=== PATIENT | female | born 1995 | race Caucasian/White ===

== ENCOUNTER 2016-05-29 21:37 | Emergency (ER) | payer OTHER ==
[2016-05-29 22:13] VITALS: BP 116/74; PULSE 90; RESP 20; TEMP 98.7
--- NOTE | 2016-05-29 23:06 | ED ---
General Adult HPI - General Chief complaint: ENT Stated complaint: Sore Throat Time Seen by Provider: 05/29/16 22:56 Source: patient, RN notes reviewed Mode of arrival: ambulatory Limitations: no limitations - History of Present Illness Initial comments: Patient 20-year-old female who presents emergency room today with a chief complaint of increased sore throat. States it hurts when she swallows and does admit to pain to the right ear. Patient denies any other complaints or associated symptoms. Patient denies any recent fever, chills, shortness of breath, chest pain, back pain, abdominal pain, nausea or vomiting, numbness or tingling, dysuria or hematuria, constipation or diarrhea, headaches or visual changes, or any other complaints. - Related Data Previous Rx's Medication Instructions Recorded Amoxicillin 500 mg PO Q8H 10 Days 05/29/16 Ibuprofen [Motrin] 600 mg PO Q6HR PRN #20 day 05/29/16 Allergies Allergy/AdvReac Type Severity Reaction Status Date / Time adhesive tape Allergy Rash/Hives Verified 05/29/16 22:13 latex Allergy Rash/Hives Verified 05/29/16 22:13 nickel Allergy Rash/Hives Verified 05/29/16 22:13 orange juice [[place]] Allergy Swelling Verified 05/29/16 22:13 egg AdvReac Severe Nausea & Verified 05/29/16 22:13 Vomiting Review of Systems ROS Statement: Those systems with pertinent positive or pertinent negative responses have been documented in the HPI. ROS Other: All systems not noted in ROS Statement are negative. Past Medical History Past Medical History: Asthma History of Any Multi-Drug Resistant Organisms: None Reported Past Surgical History: No Surgical Hx Reported Past Psychological History: ADD/ADHD, Depression Smoking Status: Never smoker Past Alcohol Use History: None Reported Past Drug Use History: None Reported General Exam - General Exam Comments Initial Comments: General: The patient is awake and alert, in no distress, and does not appear acutely ill. Eye: Pupils are equal, round and reactive to light, extra-ocular movements are intact. No nystagmus. There is normal conjunctiva bilaterally. No signs of icterus. Ears, nose, mouth and throat: There are moist mucous membranes and no oral lesions. Patient does have increased redness or erythema to the right ear with decreased bony landmarks consistent with otitis media on the right. Left TM clear. Neck: The neck is supple, there is no tenderness or JVD. Cardiovascular: There is a regular rate and rhythm. No murmur, rub or gallop is appreciated. Respiratory: Lungs are clear to auscultation, respirations are non-labored, breath sounds are equal. No wheezes, stridor, rales, or rhonchi. Musculoskeletal: Normal ROM, no tenderness. Strength 5/5. Sensation intact. Pulses equal bilaterally 2+. Neurological: A&O x 3. CN II-XII intact, There are no obvious motor or sensory deficits. Coordination appears grossly intact. Speech is normal. Skin: Skin is warm and dry and no rashes or lesions are noted. Psychiatric: Cooperative, appropriate mood & affect, normal judgment. Limitations: no limitations Course Vital Signs 05/29/16 22:11 Temperature 98.7 F Pulse Rate 90 Respiratory 20 Rate Blood Pressure 116/74 O2 Sat by Pulse 97 Oximetry Medical Decision Making - Medical Decision Making Patient will be started on antibiotics cover for otitis media to the right. Disposition Clinical Impression: Acute otitis media, right Disposition: HOME SELF-CARE Condition: Good Instructions: Otitis Media (ED) Additional Instructions: Please use medication as discussed. Please follow-up with family doctor in the next 2 days of symptoms have not improved. Please return to emergency room if the symptoms increase or worsen or for any other concerns. Prescriptions: Amoxicillin 500 mg PO Q8H 10 Days Ibuprofen [Motrin] 600 mg PO Q6HR PRN #20 day PRN Reason: Pain Time of Disposition: 23:06
[2016-05-29] MEDS ORDERED: AMOXICILLIN 500MG STARTER PACK 3 CAP BTL PO STA (23:09)
== END 2016-05-29 23:30 | disposition home or self-care (01) ==
LOC: EC 21:37
DX: H66.91 Otitis media, unspecified, right ear (principal); Z91.012 Allergy to eggs; Z91.040 Latex allergy status; Z91.018 Allergy to other foods; Z91.048 Other nonmedicinal substance allergy status
CPT/HCPCS: 99282

== ENCOUNTER 2016-06-09 12:39 | Emergency (ER) | payer OTHER ==
[2016-06-09 13:10] VITALS: BP 119/61; PULSE 101; RESP 20; TEMP 98.5
--- NOTE | 2016-06-09 13:22 | ED ---
General Adult HPI - General Chief complaint: Upper Respiratory Infection Stated complaint: COUGH Time Seen by Provider: 06/09/16 13:18 Source: patient, RN notes reviewed Mode of arrival: ambulatory Limitations: no limitations - History of Present Illness Initial comments: A 20-year-old female who presents with cough 3-4 days. Patient states she was recently on antibiotics for an ear infection and finished the antibiotics 2-3 days ago. Patient denies any known fevers but states she has felt warm. Patient denies any shortness of breath or wheezing. Patient states she has a history of asthma but she has not needed her inhaler more often. Patient denies any congestion, ear pain, headache or sore throat. Patient is unsure if she could be . Patient denies any recent chest pain, abdominal pain, nausea/vomiting/diarrhea, back pain, numbness, tingling, hematuria, or visual changes, or any other complaints. - Related Data Allergies Allergy/AdvReac Type Severity Reaction Status Date / Time adhesive tape Allergy Rash/Hives Verified 06/09/16 13:10 latex Allergy Rash/Hives Verified 06/09/16 13:10 nickel Allergy Rash/Hives Verified 06/09/16 13:10 orange juice [[place]] Allergy Swelling Verified 06/09/16 13:10 egg AdvReac Severe Nausea & Verified 06/09/16 13:10 Vomiting Review of Systems ROS Statement: Those systems with pertinent positive or pertinent negative responses have been documented in the HPI. ROS Other: All systems not noted in ROS Statement are negative. Past Medical History Past Medical History: Asthma History of Any Multi-Drug Resistant Organisms: None Reported Past Surgical History: No Surgical Hx Reported Past Psychological History: ADD/ADHD, Depression Smoking Status: Never smoker Past Alcohol Use History: None Reported Past Drug Use History: None Reported General Exam - General Exam Comments Initial Comments: General: The patient is awake and alert, in no distress, and does not appear acutely ill. Eye: Pupils are equal, round and reactive to light, extra-ocular movements are intact. No nystagmus. There is normal conjunctiva bilaterally. No signs of icterus. Ears: TMs pink and pearly with intact cone of light bilaterally. Normal external ear canals Nose: Nasal turbinates pink and moist Mouth and throat: There are moist mucous membranes and no oral lesions. Neck: The neck is supple, there is no tenderness or JVD. Cardiovascular: There is a regular rate and rhythm. No murmur, rub or gallop is appreciated. Respiratory: Lungs are clear to auscultation, respirations are non-labored, breath sounds are equal. No wheezes, stridor, rales, or rhonchi. Musculoskeletal: Normal ROM, no tenderness. Strength 5/5. Sensation intact. Radial pulses equal bilaterally 2+. Neurological: A&O x 3. CN II-XII intact, There are no obvious motor or sensory deficits. Coordination appears grossly intact. Speech is normal. Skin: Skin is warm and dry and no rashes or lesions are noted. Psychiatric: Cooperative, appropriate mood & affect, normal judgment. Limitations: no limitations Course Vital Signs 06/09/16 13:07 Temperature 98.5 F Pulse Rate 101 H Respiratory 20 Rate Blood Pressure 119/61 O2 Sat by Pulse 100 Oximetry Medical Decision Making - Medical Decision Making This is a 20-year-old female who presents with cough 3-4 days. On physical exam lungs are clear to auscultation bilaterally. Patient is afebrile the EC. Patient is 100% on room air and respiratory rate is 20. A urine hCG was done and was negative. A chest x-ray was done and reviewed showing: No acute cardiopulmonary process. No significant change from prior. Reported by Dr. Servin. I discussed upper respiratory infection with patient. I discussed over-the- counter decongestants, Flonase, Claritin or nasal rinses to help with symptom relief. I discussed Tylenol and Motrin for any pain or fever symptoms. I discussed return parameters.Discussed that patient should follow up with PCP in one to 2 days or return to the EC for any worsening symptoms or for any further concerns. Patient was receptive to this plan and patient will be discharged home. - Lab Data Lab Results 06/09/16 Range/Units 13:44 Urine HCG, Qual Not Detected (Not Detectd) Disposition Clinical Impression: Upper respiratory infection Disposition: HOME SELF-CARE Condition: Good Instructions: Upper Respiratory Infection (ED) Additional Instructions: Please use [id number] decongestants, nasal sprays, nasal rinses are clear to help with symptom relief. Please use Tylenol or Motrin for any pain or fever symptoms.Please use medication as discussed. Please follow-up with family doctor in the next 2 days of symptoms have not improved. Please return to emergency room if the symptoms increase or worsen or for any other concerns. Referrals: None,Stated [Primary Care Provider] - 1-2 days Daphne Holt MD [STAFF PHYSICIAN] - 1-2 days Time of Disposition: 14:56
--- NOTE | 2016-06-09 14:42 | XR ---
EXAMINATION TYPE: XR chest 2V DATE OF EXAM: 06/09/2016 2:31 PM CLINICAL HISTORY: Cough and rib pain for 3 days. TECHNIQUE: Frontal and lateral views of the chest are obtained. COMPARISON: Chest x-ray February 06, 2016. FINDINGS: There is no focal air space opacity, pleural effusion, or pneumothorax seen. The cardiac silhouette size is within normal limits. The osseous structures are intact. IMPRESSION: No acute cardiopulmonary process. No significant change from prior.
== END 2016-06-09 15:02 | disposition home or self-care (01) ==
LOC: EC 12:39
DX: J06.9 Acute upper respiratory infection, unspecified (principal); Z91.040 Latex allergy status; Z91.012 Allergy to eggs; Z91.018 Allergy to other foods; Z91.048 Other nonmedicinal substance allergy status
CPT/HCPCS: 71020; 81025; 99283

== ENCOUNTER 2016-07-07 00:48 | Emergency (ER) | payer OTHER ==
[2016-07-07 00:57] VITALS: BP 126/73; PULSE 80; RESP 18; TEMP 99.4
--- NOTE | 2016-07-07 01:49 | ED ---
Female Urogenital HPI - General Chief complaint: Vaginal Bleeding Stated complaint: Female / 3 months Preg Time Seen by Provider: 07/07/16 01:01 Source: patient, EMS, RN notes reviewed, old records reviewed Mode of arrival: EMS Limitations: no limitations - History of Present Illness Initial comments: Patient is a 20 year old female with chief complaint of vaginal bleeding for one day, and she states that she is approximately 3 months . 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 Patient arrived to emergency department via EMS. Patient is withdrawn and states that she did not want to come here. She reports that her boyfriend made her come because she said she was light headed. Patient states that she has not had any treatment for this , she does not have an OBGYN. - Related Data Home Medications Medication Instructions Recorded Confirmed Unable To Assess [Unable to Assess] 07/07/16 07/07/16 Allergies Allergy/AdvReac Type Severity Reaction Status Date / Time adhesive tape Allergy Rash/Hives Verified 07/07/16 00:53 latex Allergy Rash/Hives Verified 07/07/16 00:53 nickel Allergy Rash/Hives Verified 07/07/16 00:53 orange juice [[place]] Allergy Swelling Verified 07/07/16 00:53 egg AdvReac Severe Nausea & Verified 07/07/16 00:53 Vomiting Review of Systems ROS Statement: Those systems with pertinent positive or pertinent negative responses have been documented in the HPI. ROS Other: All systems not noted in ROS Statement are negative. Past Medical History Past Medical History: Asthma History of Any Multi-Drug Resistant Organisms: None Reported Past Surgical History: No Surgical Hx Reported Past Psychological History: ADD/ADHD, Depression Smoking Status: Never smoker Past Alcohol Use History: None Reported Past Drug Use History: None Reported General Exam - General Exam Comments Initial Comments: Patient is a 20 year old female, no distress. Patient is withdrawn and will not look or talk to me for more than 2 sentances. She is sitting with her arms crossed and watching the TV. Limitations: no limitations General appearance: alert, in no apparent distress Head exam: Present: atraumatic, normocephalic, normal inspection Eye exam: Present: normal appearance, PERRL. Absent: scleral icterus, conjunctival injection, periorbital swelling ENT exam: Present: mucous membranes moist Neck exam: Present: normal inspection. Absent: tenderness, meningismus, lymphadenopathy Respiratory exam: Present: normal lung sounds bilaterally. Absent: respiratory distress, wheezes, rales, rhonchi, stridor Cardiovascular Exam: Present: regular rate, normal heart sounds. Absent: systolic murmur, diastolic murmur, rubs, gallop, clicks GI/Abdominal exam: Absent: distended, tenderness, guarding, rebound, rigid Extremities exam: Present: normal inspection, full ROM. Absent: tenderness, pedal edema, joint swelling, calf tenderness Neurological exam: Present: alert, oriented X3 Psychiatric exam: Present: normal affect. Absent: normal mood (Patient is cross , and arguing with boyfriend about being here. States she feels fine and wants to go home. ) Skin exam: Present: warm, dry, intact, normal color, other (Patient has port wine bailey on right face. ). Absent: rash Course Vital Signs 07/07/16 00:53 Temperature 99.4 F Pulse Rate 80 Respiratory 18 Rate Blood Pressure 126/73 O2 Sat by Pulse 100 Oximetry Medical Decision Making - Medical Decision Making Patient is a 20 year old female with chief complaint of vaginal bleeding for one day, and she states that she is approximately 3 months . 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 Patient arrived to emergency department via EMS. Patient is withdrawn and states that she did not want to come here. She reports that her boyfriend made her come because she said she was light headed. Patient states that she has not had any treatment for this , she does not have an OBGYN. When I discussed the treatment plan of taking blood work and preforming speculum exam patient states that she wants to go home and wants to refuse treatment. Patient was very withdrawn and wanted her boyfriend to speak for why she was there. Patient boyfriend and patient do appear to be upset with each other. At this time, I asked the boyfriend to leave the room. With patient alone, I attempted to ask the patient why she does not want treatmetn or if there are any fear of abuse or if she does not feel safe. Discussed that I wanted to help the patient and if she is having a miscarriage we need to know her lab work including hcg and abo rh. Patient continued to refuse to want to open up, and only stated she wanted to leave. Discussed she would need to leave AMA, and patient agrees to. Discussed that she can return if she has any concerned. Disposition Clinical Impression: Vaginal bleeding, Disposition: Left Against Medical Advice Condition: Stable Referrals: None,Stated [Primary Care Provider] - 1-2 days Time of Disposition: 01:48
== END 2016-07-07 01:56 | disposition left against medical advice (07) ==
LOC: EC 00:48
DX: O20.9 Hemorrhage in early pregnancy, unspecified (principal); Z3A.12 12 weeks gestation of pregnancy; Z91.040 Latex allergy status; Z91.048 Other nonmedicinal substance allergy status; Z91.018 Allergy to other foods; Z91.012 Allergy to eggs; Z88.8 Allergy status to other drugs, medicaments and biological substances
CPT/HCPCS: 99283

== ENCOUNTER 2016-07-17 20:42 | Emergency (ER) | payer OTHER ==
[2016-07-17 21:31] VITALS: TEMP 101
[2016-07-17] MEDS ORDERED: ONDANSETRON 4 MG/2 ML VIAL IVP STA (22:54)
[2016-07-17] MEDS ORDERED: ACETAMINOPHEN TAB 500 MG TAB PO STA (22:54)
[2016-07-17] MEDS ORDERED: SODIUM CHLORIDE 0.9% 1,000 ML IV STA (22:54)
[2016-07-17 23:40] LABS: Basophils # (A) 0.1 k/uL (0-0.2); Basophils % (A) 1 %; CH 28.1; CHCM 32.5; Eosinophils % (A) 1 %; HCT 42.4 % (34.0-46.0); HDW 2.12; HGB 13.7 gm/dL (11.4-16.0); Luc # (Auto) 0.07; Luc % (Auto) 1; Lymphocytes # (A) 1.3 k/uL (1.0-4.8); Lymphocytes % (A) 24 %; MCHC 32.3 g/dL (31.0-37.0); MCV 86.6 fL (80.0-100.0); Mean Platelet Volume 6.8; Monocytes # (A) 0.3 k/uL (0-1.0); Monocytes % (A) 6 %; Neutrophils # (A) 3.7 k/uL (1.3-7.7); Neutrophils % (A) 67 %; RDW 13.7 % (11.5-15.5); WBC 5.5 k/uL (4.0-11.0); WBC (Perox) 5.48
[2016-07-17 23:52] LABS: ALT 23 U/L (9-52); AST 20 U/L (14-36); Alkaline Phosphatase 44 U/L (38-126); Anion Gap 10 mmol/L; Blood Urea Nitrogen 10 mg/dL (7-17); Calcium 9.4 mg/dL (8.4-10.2); Carbon Dioxide 27 mmol/L (22-30); Chloride 100 mmol/L (98-107); Glucose 88 mg/dL (74-99); Magnesium 1.9 mg/dL (1.6-2.3); Non-African American GFR(MDRD) >60 (>60 ml/min/1.73 sqM); Potassium 3.6 mmol/L (3.5-5.1); Sodium 137 mmol/L (137-145); Total Bilirubin 0.8 mg/dL (0.2-1.3)
--- NOTE | 2016-07-18 00:32 | ED ---
Nausea/Vomiting/Diarrhea HPI - General Chief complaint: Nausea/Vomiting/Diarrhea Stated complaint: vomiting Time Seen by Provider: 07/17/16 22:47 Source: patient Mode of arrival: ambulatory Limitations: no limitations - History of Present Illness Initial comments: Patient is a 20-year-old female presenting with nausea and vomiting. Patient states she had vomited 20 episodes of vomiting for the past day. She is suspicious of the meatloaf she ate. Another friend is also sick. Patient denies abdominal pain. Patient has not tried anything for her nausea. Patient describes vomitus food contents and nonbloody. Patient denies fever, chills, chest pain, shortness breath, diarrhea, abdominal pain, dysuria. - Related Data Previous Rx's Medication Instructions Recorded Ondansetron [Zofran] 4 mg PO Q8HR PRN #6 tab 07/18/16 Allergies Allergy/AdvReac Type Severity Reaction Status Date / Time egg Allergy Unknown Swelling Verified 07/17/16 22:59 adhesive tape Allergy Rash/Hives Verified 07/17/16 22:59 latex Allergy Rash/Hives Verified 07/17/16 22:59 nickel Allergy Rash/Hives Verified 07/17/16 22:59 orange juice [[place]] Allergy Swelling Verified 07/17/16 22:59 diphenhydramine AdvReac Anxiety Verified 07/17/16 22:59 [From Benadryl] Review of Systems ROS Statement: Those systems with pertinent positive or pertinent negative responses have been documented in the HPI. Constitutional: No fever and no chills. HENT: No congestion, no rhinorrhea and no sore throat. Eyes: No discharge and no redness. Respiratory: No cough and no shortness of breath. Cardiovascular: No chest pain and no palpitations. Gastrointestinal: +nausea, +vomiting, no abdominal pain and no diarrhea. Genitourinary: No dysuria and no hematuria. Musculoskeletal: No back pain and no arthralgias. Skin: No pallor and no rash. Neurological: No dizziness and No headaches. ROS Other: All systems not noted in ROS Statement are negative. Past Medical History Past Medical History: Asthma History of Any Multi-Drug Resistant Organisms: None Reported Past Surgical History: No Surgical Hx Reported Past Psychological History: ADD/ADHD, Depression Smoking Status: Never smoker Past Alcohol Use History: None Reported Past Drug Use History: None Reported General Exam - General Exam Comments Initial Comments: Constitutional: Patient appears well-developed and well-nourished. No distress. Febrile here. Warm to the touch. Head: Normocephalic and atraumatic. Eyes: Conjunctivae and EOM are normal. Right eye exhibits no discharge. Left eye exhibits no discharge. No scleral icterus. Neck: Normal range of motion. Neck supple. Cardiovascular: Normal rate and regular rhythm. No murmur heard. Pulmonary/Chest: Effort normal and breath sounds normal. No respiratory distress. No wheezes. Abdominal: Soft. No distension. There is no tenderness. There is no rebound and no guarding. Musculoskeletal: Normal range of motion. No edema or tenderness. Neurological: Patient alert and oriented to person, place, and time. Skin: Skin is warm and dry. Not diaphoretic. Nursing notes and vitals reviewed. Limitations: no limitations Course Vital Signs 07/17/16 21:29 Temperature 101.0 F H Pulse Rate 125 H Respiratory 22 Rate Blood Pressure 114/68 O2 Sat by Pulse 99 Oximetry - Reevaluation(s) Reevaluation #1: 07/18/16 00:49 Patient resting comfortably in bed and feeling much better. No further vomiting. Patient afebrile. Medical Decision Making - Medical Decision Making Patient is a 20-year-old female presenting with acute nausea vomiting. Patient suspicious of food she ate. Patient multiple episodes of vomiting. Patient presented febrile and tachycardic without definitive source. CBC, CMP, lipase unremarkable. UA negative for concerns of urinary tract infection or . Patient feeling much better and afebrile. Patient given Zofran for home. Prior to discharge, patient was resting comfortably in bed. Course of stay improved. Denies pain. Discussed physical exam and diagnostic tests with patient. Questions answered and patient is agreeable to discharge with close follow up with Primary Care Physician. Instructed to return to Emergency Department if symptoms worsen. - Lab Data Result diagrams: 07/17/16 23:28 07/17/16 23:28 Lab Results 07/17/16 07/17/16 07/18/16 Range/Units 23:28 23:28 00:25 WBC 5.5 (4.0-11.0) k/uL RBC 4.90 (3.80-5.40) m/uL Hgb 13.7 (11.4-16.0) gm/dL Hct 42.4 (34.0-46.0) % MCV 86.6 (80.0-100.0) fL MCH 28.0 (25.0-35.0) pg MCHC 32.3 (31.0-37.0) g/dL RDW 13.7 (11.5-15.5) % Plt Count 210 (150-450) k/uL Neutrophils % 67 % Lymphocytes % 24 % Monocytes % 6 % Eosinophils % 1 % Basophils % 1 % Neutrophils # 3.7 (1.3-7.7) k/uL Lymphocytes # 1.3 (1.0-4.8) k/uL Monocytes # 0.3 (0-1.0) k/uL Eosinophils # 0.0 (0-0.7) k/uL Basophils # 0.1 (0-0.2) k/uL Sodium 137 (137-145) mmol/L Potassium 3.6 (3.5-5.1) mmol/L Chloride 100 (98-107) mmol/L Carbon Dioxide 27 (22-30) mmol/L Anion Gap 10 mmol/L BUN 10 (7-17) mg/dL Creatinine 0.64 (0.52-1.04) mg/dL Est GFR (MDRD) Af Amer >60 (>60 ml/min/1.73 sqM) Est GFR (MDRD) Non-Af >60 (>60 ml/min/1.73 sqM) Glucose 88 (74-99) mg/dL Calcium 9.4 (8.4-10.2) mg/dL Magnesium 1.9 (1.6-2.3) mg/dL Total Bilirubin 0.8 (0.2-1.3) mg/dL AST 20 (14-36) U/L ALT 23 (9-52) U/L Alkaline Phosphatase 44 (38-126) U/L Total Protein 7.0 (6.3-8.2) g/dL Albumin 4.2 (3.5-5.0) g/dL Lipase 49 (23-300) U/L Urine Color Light Yellow Urine Appearance Clear (Clear) Urine pH 6.5 (5.0-8.0) Ur Specific [place] 1.002 (1.001-1.035) Urine Protein Negative (Negative) Urine Glucose (UA) Negative (Negative) Urine Ketones Negative (Negative) Urine Blood Negative (Negative) Urine Nitrite Negative (Negative) Urine Bilirubin Negative (Negative) Urine Urobilinogen <2.0 (<2.0) mg/dL Ur Leukocyte Esterase Negative (Negative) Urine HCG, Qual (Not Detectd) 07/18/16 Range/Units 00:25 WBC (4.0-11.0) k/uL RBC (3.80-5.40) m/uL Hgb (11.4-16.0) gm/dL Hct (34.0-46.0) % MCV (80.0-100.0) fL MCH (25.0-35.0) pg MCHC (31.0-37.0) g/dL RDW (11.5-15.5) % Plt Count (150-450) k/uL Neutrophils % % Lymphocytes % % Monocytes % % Eosinophils % % Basophils % % Neutrophils # (1.3-7.7) k/uL Lymphocytes # (1.0-4.8) k/uL Monocytes # (0-1.0) k/uL Eosinophils # (0-0.7) k/uL Basophils # (0-0.2) k/uL Sodium (137-145) mmol/L Potassium (3.5-5.1) mmol/L Chloride (98-107) mmol/L Carbon Dioxide (22-30) mmol/L Anion Gap mmol/L BUN (7-17) mg/dL Creatinine (0.52-1.04) mg/dL Est GFR (MDRD) Af Amer (>60 ml/min/1.73 sqM) Est GFR (MDRD) Non-Af (>60 ml/min/1.73 sqM) Glucose (74-99) mg/dL Calcium (8.4-10.2) mg/dL Magnesium (1.6-2.3) mg/dL Total Bilirubin (0.2-1.3) mg/dL AST (14-36) U/L ALT (9-52) U/L Alkaline Phosphatase (38-126) U/L Total Protein (6.3-8.2) g/dL Albumin (3.5-5.0) g/dL Lipase (23-300) U/L Urine Color Urine Appearance (Clear) Urine pH (5.0-8.0) Ur Specific [place] (1.001-1.035) Urine Protein (Negative) Urine Glucose (UA) (Negative) Urine Ketones (Negative) Urine Blood (Negative) Urine Nitrite (Negative) Urine Bilirubin (Negative) Urine Urobilinogen (<2.0) mg/dL Ur Leukocyte Esterase (Negative) Urine HCG, Qual Not Detected (Not Detectd) Disposition Clinical Impression: Nausea & vomiting Disposition: HOME SELF-CARE Instructions: Acute Nausea and Vomiting (ED) Prescriptions: Ondansetron [Zofran] 4 mg PO Q8HR PRN #6 tab PRN Reason: Nausea Referrals: None,Stated [Primary Care Provider] - 1-2 days
[2016-07-18 00:43] LABS: Appearance,Urine Clear (Clear); Bilirubin,Urine Negative (Negative); Glucose,Urine (UA) Negative (Negative); Ketones,Urine Negative (Negative); Leukocyte Esterase,Urine Negative (Negative); Nitrite,Urine Negative (Negative); PH, Urine 6.5 (5.0-8.0); Protein,Urine Negative (Negative); Specific Gravity,Urine 1.002 (1.001-1.035); UA Billing (MACRO vs. MICRO) CHEM; Urobilinogen,Urine <2.0 mg/dL (<2.0)
[2016-07-18 00:57] VITALS: BP 98/50; PULSE 88; RESP 16
== END 2016-07-18 00:57 | disposition home or self-care (01) ==
LOC: EC 20:42
DX: R11.2 Nausea with vomiting, unspecified (principal); R50.9 Fever, unspecified; R00.0 Tachycardia, unspecified; Z88.8 Allergy status to other drugs, medicaments and biological substances; Z91.012 Allergy to eggs; Z91.018 Allergy to other foods; Z91.040 Latex allergy status; Z91.09 Other allergy status, other than to drugs and biological substances
CPT/HCPCS: 36415; 80053; 83690; 83735; 85025; 81003; 81025; 99284; 96374; 96361; J2405

== ENCOUNTER 2016-12-09 12:04 | Emergency (ER) | payer OTHER ==
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
--- NOTE | 2016-12-09 13:29 | CT ---
EXAMINATION TYPE: CT brain wo con DATE OF EXAM: 12/09/2016 COMPARISON: CT brain October 21, 2015 HISTORY: Patient fell today. Patient has right side periorbital contusion. Patient complains of head ache and dizziness post fall. CT DLP: 942 mGycm. Automated Exposure Control for Dose Reduction was Utilized. TECHNIQUE: CT scan of the head is performed without contrast. FINDINGS: There is no acute intracranial hemorrhage, mass effect, or midline shift identified. The ventricles and sulci are within normal limits in size. Cadet-white matter differentiation is maintai bren. The globes are intact and the visualized sinuses are clear. The calvarium is intact. IMPRESSION: No acute intracranial hemorrhage, mass effect, or midline shift is seen.
[2016-12-09 14:50] VITALS: BP 118/59; PULSE 97; RESP 20; TEMP 98
== END 2016-12-09 14:50 | disposition home or self-care (01) ==
LOC: EC 12:04
DX: S06.0X0A Concussion without loss of consciousness, initial encounter (principal); Z91.012 Allergy to eggs; Z91.048 Other nonmedicinal substance allergy status; Z91.040 Latex allergy status; Z91.018 Allergy to other foods; Z88.8 Allergy status to other drugs, medicaments and biological substances
CPT/HCPCS: 70450; 93005; 99284

== ENCOUNTER 2016-12-12 17:58 | Emergency (ER) | payer OTHER ==
[2016-12-12 18:04] VITALS: RESP 18
--- NOTE | 2016-12-12 18:17 | ED ---
General Adult HPI - General Chief complaint: Head Injury Stated complaint: Fall a few days ago-head pain Time Seen by Provider: 12/12/16 18:12 Source: patient, RN notes reviewed Mode of arrival: wheelchair Limitations: no limitations - History of Present Illness Initial comments: 21-year-old female presents emergency Department chief complaint of headache and feeling off. Patient states she is going to pass out. Patient states that she Had headache and states she started to feel some dizziness with this. Patient states she's had nausea without vomiting. Patient seen neck pain or any other injury from the incident. Patient states at the time she does not loosely but is since gone away. Patient was concerned due to her symptoms so she thought that she should be evaluated.Patient denies any recent fever, chills , shortness of breath, chest pain, back pain, abdominal pain, vomiting, numbness or tingling, dysuria or hematuria, constipation or diarrhea,or visual changes, or any other current symptoms. - Related Data Home Medications Medication Instructions Recorded Confirmed No Known Home Medications [No 12/09/16 12/12/16 Known Home Medications] Allergies Allergy/AdvReac Type Severity Reaction Status Date / Time egg Allergy Unknown Swelling Verified 12/12/16 18:34 adhesive tape Allergy Rash/Hives Verified 12/12/16 18:34 latex Allergy Rash/Hives Verified 12/12/16 18:34 nickel Allergy Rash/Hives Verified 12/12/16 18:34 orange juice [[place]oke] Allergy Swelling Verified 12/12/16 18:34 diphenhydramine AdvReac Anxiety Verified 12/12/16 18:34 [From Benadryl] Review of Systems ROS Statement: Those systems with pertinent positive or pertinent negative responses have been documented in the HPI. ROS Other: All systems not noted in ROS Statement are negative. Past Medical History Past Medical History: Asthma History of Any Multi-Drug Resistant Organisms: None Reported Past Surgical History: No Surgical Hx Reported Past Psychological History: ADD/ADHD, Depression Smoking Status: Never smoker Past Alcohol Use History: None Reported Past Drug Use History: None Reported General Exam - General Exam Comments Initial Comments: General: The patient is awake and alert, in no distress, and does not appear acutely ill. Eye: Pupils are equal, round and reactive to light, extra-ocular movements are intact; there is normal conjunctiva bilaterally. No signs of icterus. Ears, nose, mouth and throat: There are moist mucous membranes and no oral lesions. Neck: The neck is supple, there is no tenderness. Cardiovascular: There is a regular rate and rhythm. No murmur, rub or gallop is appreciated. Respiratory: Lungs are clear to auscultation, respirations are non-labored, breath sounds are equal. No wheezes, stridor, rales, or rhonchi. Gastrointestinal: Soft, non-distended, non-tender abdomen without masses or organomegaly noted. There is no rebound or guarding present. No CVA tenderness. Bowel sounds are unremarkable. Back: There is no tenderness to palpation in the midline. There is no obvious deformity. No rashes noted. Musculoskeletal: Normal ROM, no tenderness, There is no pedal edema. There is no calf tenderness or swelling. Sensation intact. Pulses equal bilaterally 2+. Neurological: CN II-XII intact, There are no obvious motor or sensory deficits. Coordination appears grossly intact. Speech is normal. Skin: Skin is warm and dry and no rashes or lesions are noted. Psychiatric: Cooperative, appropriate mood & affect, normal judgment. Limitations: no limitations Course Vital Signs 12/12/16 18:01 Temperature 98.4 F Pulse Rate 95 Respiratory 18 Rate Blood Pressure 116/68 O2 Sat by Pulse 100 Oximetry Medical Decision Making - Medical Decision Making 21-year-old female presents with headache after head injury. At this time patient also has a concussion. We discussed Motrin Tylenol for pain. We discussed return parameters and follow-up. We discussed care. Patient stated that she understood and chest. All questions were answered. She'll be discharged. - Lab Data Lab Results 12/12/16 Range/Units 19:05 Urine HCG, Qual Not Detected (Not Detectd) - Radiology Data Radiology results: report reviewed, image reviewed Disposition Clinical Impression: Concussion with loss of consciousness Disposition: HOME SELF-CARE Condition: Stable Instructions: Concussion (ED) Additional Instructions: Please use medication as discussed. Please follow up with family doctor if symptoms have not improved over the next two days. Please return to the emergency room if your symptoms increase or worsen or for any other concerns. Referrals: Aaron Boykin MD [Primary Care Provider] - 1-2 days Time of Disposition: 19:42
--- NOTE | 2016-12-12 19:42 | CT ---
EXAMINATION TYPE: CT brain wo con DATE OF EXAM: 12/12/2016 COMPARISON: 12/09/2016 HISTORY: Continued headaches post trauma [address] DLP: 1121 mGycm. Automated Exposure Control for Dose Reduction was Utilized. TECHNIQUE: CT scan of the head is performed without contrast. FINDINGS: Ventricles and sulci appear normal. There is no mass effect nor midline shift. There is no sign of intracranial hemorrhage. The calvarium appears normal. IMPRESSION: Negative CT scan of the brain..
[2016-12-12 19:48] VITALS: BP 127/62; PULSE 70; TEMP 98
== END 2016-12-12 19:48 | disposition home or self-care (01) ==
LOC: EC 17:58
DX: S06.0X9A Concussion with loss of consciousness of unspecified duration, initial encounter (principal); Z91.048 Other nonmedicinal substance allergy status; Z91.040 Latex allergy status; Z88.8 Allergy status to other drugs, medicaments and biological substances; Z91.012 Allergy to eggs; Z91.018 Allergy to other foods; W19.XXXA Unspecified fall, initial encounter
CPT/HCPCS: 70450; 81025; 99284

== ENCOUNTER 2016-12-23 22:34 | Emergency (ER) | payer OTHER ==
[2016-12-23 23:01] VITALS: BP 124/80; PULSE 88; RESP 20; TEMP 98.3
[2016-12-23] MEDS ORDERED: ACETAMINOPHEN TAB 500 MG TAB PO STA (23:17)
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
--- NOTE | 2016-12-23 23:35 | XR ---
EXAMINATION TYPE: XR knee complete LT DATE OF EXAM: 12/23/2016 COMPARISON: NONE HISTORY: Knee pain TECHNIQUE: 3 views FINDINGS: I see no fracture nor dislocation. Joint spaces are normal. There is no sign of joint effus ion. IMPRESSION: Negative left knee exam.
== END 2016-12-24 00:04 | disposition home or self-care (01) ==
LOC: EC 22:34
DX: S80.02XA Contusion of left knee, initial encounter (principal); Z91.040 Latex allergy status; Z91.012 Allergy to eggs; Z91.018 Allergy to other foods; Z88.8 Allergy status to other drugs, medicaments and biological substances; Z91.048 Other nonmedicinal substance allergy status; W22.8XXA Striking against or struck by other objects, initial encounter; Y93.55 Activity, bike riding
CPT/HCPCS: 99283